=== PATIENT | female | born 1975 | race Caucasian/White ===

== ENCOUNTER 2016-12-30 16:52 | Emergency (ER) | payer OTHER ==
[~2016-12-30] VITALS: Ht 149.9 cm; Wt 77.0 kg
[~2016-12-30 16:52] MED LIST: IBUP-1542 PO
[2016-12-30 16:57] VITALS: Ht 149.9 cm; Wt 77.0 kg
[2016-12-30] MEDS ORDERED: HYDROCODONE/APAP (5/325) TAB PO STA (17:36)
[2016-12-30] MEDS ORDERED: ONDANSETRON (ODT) 4 MG TAB ODT STA (17:36)
--- NOTE | 2016-12-30 18:28 | RADRPT ---
PROCEDURE: Right Upper Quadrant Ultrasound. CLINICAL INDICATION: Abdominal Pain TECHNIQUE: Multiple real-time images were acquired of the patient's right upper quadrant abdomen a nd retroperitoneum utilizing a high resolution transducer. COMPARISON: None FINDINGS: The liver measures 17.3 cm, and demonstrates moderately increased echogenicity and coarsened echotex ture. The main portal vein is patent with proper directional flow. There is no intrahepatic biliary ductal dilatation. The extrahepatic common bile duct measures 5 mm. There is cholelithiasis. There is no gallbladder wall thickening or pericholecystic fluid. Sonogra phic Charles's sign is absent. The visualized pancreas is unremarkable. The right kidney measures 10.9 cm and demonstrates normal echotexture. There is no right renal calcu reema or hydronephrosis. The visualized abdominal aorta and IVC are grossly unremarkable. IMPRESSION: The liver is mildly enlarged and demonstrates moderately increased echogenicity and coarsened echote xture. Findings are nonspecific and can be seen with fatty infiltration and / or early chronic live r disease. No definite morphologic changes of cirrhosis are identified. The main portal vein is pa tent with proper directional flow. Cholelithiasis without evidence of acute cholecystitis. Normal CBD. RPTAT: EE Physician Becky Date Time Electronically viewed and signed by Physician Becky on 12/30/2016 18:27 /
[2016-12-30 18:36] LABS: ADD SCAN DIFF NO
[2016-12-30 18:41] LABS: BASOPHILS % 0.1 % (0.0-2.0); EOSINOPHILS # 0.1 10^3/ul (0.0-0.5); EOSINOPHILS % 0.6 % (0.0-7.0); HEMATOCRIT 32.7 % (37.0-47.0); HEMOGLOBIN 10.5 g/dl (12.0-16.0); LYMPHOCYTES # 0.8 10^3/ul (0.8-2.9); LYMPHOCYTES % 7.1 % (15.0-51.0); MEAN CORPUSCULAR HEMOGLOBIN 27.2 pg (29.0-33.0); MEAN CORPUSCULAR HGB CONC 32.1 g/dl (32.0-37.0); MEAN CORPUSCULAR VOLUME 84.7 fl (82.0-101.0); MEAN PLATELET VOLUME 9.6 fl (7.4-10.4); MONOCYTE # 0.6 10^3/ul (0.3-0.9); MONOCYTES % 5.3 % (0.0-11.0); NEUTROPHIL # 10.2 10^3/ul (1.6-7.5); NEUTROPHILS % 86.6 % (39.0-77.0); PLATELET COUNT 348 10^3/UL (140-415); RED BLOOD COUNT 3.86 10^6/ul (4.20-5.40); RED CELL DISTRIBUTION WIDTH 14.2 % (11.5-14.5); WHITE BLOOD COUNT 11.8 10^3/ul (4.8-10.8)
[2016-12-30 19:02] LABS: ALBUMIN 4.1 g/dl (3.3-4.9); ALBUMIN/GLOBULIN RATIO 1.28; BILIRUBIN,INDIRECT 0.1 mg/dl (0-1.1); BILIRUBIN,TOTAL 0.1 mg/dl (0.2-1.3); CALCIUM 8.9 mg/dl (8.4-10.2); CREATININE 0.67 mg/dl (0.44-1.00); POTASSIUM 4.1 mmol/L (3.5-5.1); TOTAL PROTEIN 7.3 g/dl (6.1-8.1)
[2016-12-30] MEDS ORDERED: ACET325T33 PO (19:21)
[2016-12-30] MEDS ORDERED: ONDA4TAB14 PO (19:21)
[2016-12-30 19:51] LABS: ADD UMIC YES; URINE BILIRUBIN (Dip) NEGATIVE (NEGATIVE); URINE BLOOD (Dip) NEGATIVE (NEGATIVE); URINE COLOR LT. YELLOW (YELLOW); URINE GLUCOSE (Dip) NEGATIVE (NEGATIVE); URINE KETONES (Dip) NEGATIVE (NEGATIVE); URINE LEUKOCYTE ESTERASE (Dip) 3+ (NEGATIVE); URINE NITRITE (Dip) NEGATIVE (NEGATIVE); URINE TOTAL PROTEIN (Dip) NEGATIVE (NEGATIVE); URINE UROBILINOGEN (Dip) 1.0 E.U./dL (0.1-1.0)
--- NOTE | 2016-12-30 19:59 | ERD ---
ER Documentation Chief Complaint Date/Time DATE: 12/30/16 TIME: 19:55 Chief Complaint EPIGASTRIC PAIN SINCE 1500 TODAY HPI This is a 41-year-old female presenting to the emergency department complaining of epigastric pain that radiates towards her back, describing it as pressure coming and going rating it 8 out of 10. Patient states that it has started a couple hours after her last meal at 1 PM. She denies any nausea, vomiting, diarrhea. She states that she took Tums since she thought it might be acid reflux however states that it feels different. Her last menstrual period was last month. ROS All systems reviewed and are negative except as per history of present illness. Medications Home Meds Active Scripts Ondansetron (Ondansetron Odt) 4 Mg Tab.rapdis, 4 MG PO Q6H Y for NAUSEA AND/OR VOMITING, #14 TAB Prov:BOB BERGMAN PA-C 12/30/16 Acetaminophen* (Tylenol*) 325 Mg Tablet, 2 TAB PO Q6 Y for PAIN AND OR ELEVATED TEMP, #30 TAB Prov:BOB BERGMAN PA-C 12/30/16 Ibuprofen* (Motrin*) 600 Mg Tab, 600 MG PO Q6, #30 TAB Prov:ARABELLA WADE PA-C 12/24/15 Allergies Allergies: Coded Allergies: No Known Allergy (Unverified , 12/24/15) PMhx/Soc History of Surgery: Yes (C-sections) Hx Alcohol Use: No Hx Substance Use: No Hx Tobacco Use: No Physical Exam Vitals Vital Signs Date Time Temp Pulse Resp B/P Pulse Ox O2 Delivery O2 Flow Rate FiO2 12/30/16 16:57 98.5 78 18 139/87 100 Physical Exam GENERAL: well-developed/well-nourished, in no apparent distress, non-toxic appearing HENT: NC/AT, moist mucous membranes EYES: Conjunctiva normal NECK: Supple, no lymphadenopathy PULM: CTA bilaterally, no rales, rhonchi, or wheezing heard CV: Normal S1S2, RRR, good capillary refill GI: Soft, non-distended, tender to palpation epigastric region Normal bowel sounds, no masses or organomegaly felt on exam No gross peritonitis, no bruits Negative Rovsing, negative Charles, negative McBurney's point, Negative CVAT BACK: No masses EXT: No clubbing, cyanosis, or edema NEURO: Alert and Orientated SKIN: Intact, normal turgor PSYCH: Normal mood and mentation Result Diagram: 12/30/16181912/30/161819 Results 24 hrs Laboratory Tests Test 12/30/16 18:20 White Blood Count 11.810^3/ul Red Blood Count 3.8610^6/ul Hemoglobin 10.5g/dl Hematocrit 32.7% Mean Corpuscular Volume 84.7fl Mean Corpuscular Hemoglobin 27.2pg Mean Corpuscular Hemoglobin Concent 32.1g/dl Red Cell Distribution Width 14.2% Platelet Count 47732^3/UL Mean Platelet Volume 9.6fl Neutrophils % 86.6% Lymphocytes % 7.1% Monocytes % 5.3% Eosinophils % 0.6% Basophils % 0.1% Nucleated Red Blood Cells % 0.0/100WBC Neutrophils # 10.210^3/ul Lymphocytes # 0.810^3/ul Monocytes # 0.610^3/ul Eosinophils # 0.110^3/ul Basophils # 0.010^3/ul Nucleated Red Blood Cells # 0.010^3/ul Sodium Level 137mmol/L Potassium Level 4.1mmol/L Chloride Level 103mmol/L Carbon Dioxide Level 27mmol/L Anion Gap 11 Blood Urea Nitrogen 16mg/dl Creatinine 0.67mg/dl Glucose Level 122mg/dl Calcium Level 8.9mg/dl Total Bilirubin 0.1mg/dl Direct Bilirubin 0.00mg/dl Indirect Bilirubin 0.1mg/dl Aspartate Amino Transf (AST/SGOT) 135IU/L Alanine Aminotransferase (ALT/SGPT) 76IU/L Alkaline Phosphatase 87IU/L Total Protein 7.3g/dl Albumin 4.1g/dl Globulin 3.20g/dl Albumin/Globulin Ratio 1.28 Lipase 127U/L Current Medications Medications (Trade) Dose Ordered Sig/Kylee Route PRN Reason Start Time Stop Time Status Last Admin Dose Admin Acetaminophen/ Hydrocodone Bitart (Leonard (5/325)) 1 tab ONCE STAT PO 12/30/16 17:36 12/30/16 17:38 DC Ondansetron HCl (Zofran Odt) 4 mg ONCE STAT ODT 12/30/16 17:36 12/30/16 17:38 DC Procedures/MDM 41-year-old female presenting to the emergency room complaining of 8 out of 10 epigastric pain that radiates to her back since 3 PM today likely due to cholelithiasis. I doubt patient has sepsis, choledocholithiasis, cholecystitis or cholangitis, pancreatitis or other acute abdomen conditions due to physical examination and diagnostic testing. Patient appears well and nontoxic appearing with stable vital signs. Lab work was drawn. CBC did not show any evidence of leukocytosis or anemia. CMP did not show any evidence of renal or electrolyte abnormalities. Patient did have elevated mild transaminases, likely due to fatty infiltration of the liver. No evidence of hepatic obstruction, lipase was normal. UA did not show any evidence of hemoglobin or urinary tract infection. Diagnostic testing and instructions were given to patient. Pain control and antiemetic prescriptions were provided for outpatient self-care. Discussed with patient to follow-up with primary care for GI referral. Precautions were given to return to the ER for fever, intractable pain, increased vomiting, and other worsening signs and symptoms. Patient expressed agreement and understanding of this plan. Gallbladder US: The liver is mildly enlarged and demonstrates moderately increased echogenicity and coarsened echotexture. Findings are nonspecific and can be seen with fatty infiltration and / or early chronic liver disease. No definite morphologic changes of cirrhosis are identified. The main portal vein is patent with proper directional flow. Cholelithiasis without evidence of acute cholecystitis. Normal CBD. Departure Diagnosis: Primary Impression: Cholelithiasis Condition: Stable Patient Instructions: Gallstones, Biliary Colic With Gallstone (Confirmed) Referrals: [facility] YOU HAVE RECEIVED A MEDICAL SCREENING EXAM AND THE RESULTS INDICATE THAT YOU DO NOT HAVE A CONDITION THAT REQUIRES URGENT TREATMENT IN THE EMERGENCY DEPARTMENT. FURTHER EVALUATION AND TREATMENT OF YOUR CONDITION CAN WAIT UNTIL YOU ARE SEEN IN YOUR DOCTORS OFFICE WITHIN THE NEXT 1-2 DAYS. IT IS YOUR RESPONSIBILITY TO MAKE AN APPOINTMENT FOR FOLOW-UP CARE. IF YOU HAVE A PRIMARY DOCTOR --you should call your primary doctor and schedule an appointment IF YOU DO NOT HAVE A PRIMARY DOCTOR YOU CAN CALL OUR PHYSICIAN REFERRAL HOTLINE AT IF YOU CAN NOT AFFORD TO SEE A PHYSICIAN YOU CAN CHOSE FROM THE FOLLOWING [facility] [address] [facility]. [facility] [address] [facility]. [address] [facility] [address] [facility] [address] [facility] [address] [facility]. [facility] [address] Additional Instructions: FOLLOW UP WITH YOUR PRIMARY CARE PHYSICIAN TOMORROW.Return to this facility if you are not improving as expected. Return to this facility if you are not improving as expected. Take all medicines as directed. Return to this facility if you are not improving as expected. BOB BERGMAN PA-C December 30, 2016 19:59
[2016-12-30 20:05] LABS: BACTERIA,URINE MODERATE; SQUAMOUS EPITHELIAL CELL,UR MODERATE; URINE RBCS 0-2 /HPF (0)
[2016-12-30 20:08] VITALS: BP 127/72; PULSE 71; RESP 16
== END 2016-12-30 20:10 | disposition home or self-care (01) ==
LOC: FTE 16:52
DX: K80.20 Calculus of gallbladder without cholecystitis without obstruction (principal)
CPT/HCPCS: 76705; 80053; 81001; 83690; 85025; Z7610; 81003

== ENCOUNTER 2018-11-28 13:02 | Emergency (ER) | payer OTHER ==
[~2018-11-28] VITALS: Ht 152.4 cm; Wt 70.5 kg
[~2018-11-28 13:02] MED LIST changes: +ACET325T33 PO; +ONDA4TAB14 PO
[2018-11-28 13:24] VITALS: BP 157/90; PULSE 83; RESP 18; Ht 152.4 cm; Wt 70.5 kg
[2018-11-28] MEDS ORDERED: morphine 4 MG/ML VIAL IV STA (14:30)
[2018-11-28] MEDS ORDERED: ONDANSETRON 4 MG INJ IV STA (14:30)
[2018-11-28] MEDS ORDERED: FAMOTIDINE 20 MG INJ IV STA (14:30)
[2018-11-28] MEDS ORDERED: SOD CHLORIDE 0.9% 1,000 ML IV STA (14:30)
--- NOTE | 2018-11-28 14:35 | ERD ---
ER Documentation Chief Complaint Chief Complaint EPIGASTRIC PAIN X 1 HOUR HPI 43-year-old female with known history of gallstones who presents to the emergency room with epigastric and right upper quadrant abdominal pain that started less than 24 hours ago. The pain is sharp with slight radiation to the back. She denies any chest pressure or exertional symptoms. Similar pain related to gallstones in the past. Patient denies any jaundice, fevers or chills, no nausea or vomiting. ROS All systems reviewed and are negative except as per history of present illness. Medications Home Meds Active Scripts Ibuprofen* (Motrin*) 800 Mg Tab, 800 MG PO Q6H PRN for PAIN AND OR ELEVATED TEMP, #30 TAB Prov:SHIVA NAIDU MD 11/28/18 Reported Medications Folic Acid* (Folic Acid*) 1 Mg Tablet, 1 MG PO DAILY, TAB 11/28/18 Ferrous Sulfate* (Ferrous Sulfate*) 325 Mg Tabec, 325 MG PO DAILY, TAB 11/28/18 Discontinued Scripts Ondansetron (Ondansetron Odt) 4 Mg Tab.rapdis, 4 MG PO Q6H PRN for NAUSEA AND/OR VOMITING, #14 TAB Prov:BOB BERGMAN PA-C 12/30/16 Acetaminophen* (Tylenol*) 325 Mg Tablet, 2 TAB PO Q6 PRN for PAIN AND OR ELEVATED TEMP, #30 TAB Prov:BOB BERGMAN PA-C 12/30/16 Ibuprofen* (Motrin*) 600 Mg Tab, 600 MG PO Q6, #30 TAB Prov:ARABELLA WADE PA-C 12/24/15 Allergies Allergies: Coded Allergies: No Known Allergy (Unverified , 11/28/18) PMhx/Soc History of Surgery: Yes (C-sections) Hx Miscellaneous Medical Probl: Yes (CHOLELITHIASIS) Hx Alcohol Use: No Hx Substance Use: No Hx Tobacco Use: No Smoking Status: Never smoker FmHx Family History: No diabetes Physical Exam Vitals Vital Signs Date Temp Pulse Resp B/P (MAP) Pulse Ox O2 O2 Flow FiO2 Time Delivery Rate 11/28/18 99.1 83 18 157/90 96 13:24 (112) Physical Exam General: Well developed, well nourished, no acute distress Head: Normocephalic, atraumatic. Eyes: Pupils equally reactive, EOM intact ENT: Moist mucous membranes Neck: Supple, no lymphadenopathy Respiratory: Lungs clear bilaterally, no distress Cardiovascular: RRR, no murmurs, rubs, or gallops Abdominal: Soft, tenderness to the epigastrium and right upper quadrant, no tenderness to McBurney's point, no peritonitis : Deferred MSK: No edema, no unilateral swelling, 5/5 strength Neurologic: Alert and oriented, moving all extremities, normal speech, no focal weakness, no cerebellar signs Skin: No rash Psych: Normal mood Result Diagram: 11/28/18 1440 11/28/18 1440 Results 24 hrs Laboratory Tests Test 11/28/18 14:40 11/28/18 14:47 11/28/18 14:48 White Blood Count 10.8 10^3/ul Red Blood Count 3.46 10^6/ul Hemoglobin 10.3 g/dl Hematocrit 31.1 % Mean Corpuscular Volume 89.9 fl Mean Corpuscular Hemoglobin 29.8 pg Mean Corpuscular 33.1 g/dl Hemoglobin Concent Red Cell Distribution Width 12.0 % Platelet Count 311 10^3/UL Mean Platelet Volume 9.7 fl Immature Granulocytes % 0.500 % Neutrophils % 84.0 % Lymphocytes % 7.8 % Monocytes % 6.3 % Eosinophils % 1.1 % Basophils % 0.3 % Nucleated Red Blood Cells % 0.0 /100WBC Immature Granulocytes # 0.050 10^3/ul Neutrophils # 9.1 10^3/ul Lymphocytes # 0.8 10^3/ul Monocytes # 0.7 10^3/ul Eosinophils # 0.1 10^3/ul Basophils # 0.0 10^3/ul Nucleated Red Blood Cells # 0.0 10^3/ul Sodium Level 142 mmol/L Potassium Level 3.7 mmol/L Chloride Level 107 mmol/L Carbon Dioxide Level 26 mmol/L Anion Gap 9 Blood Urea Nitrogen 16 mg/dl Creatinine 0.58 mg/dl Est Glomerular Filtrat Rate mL/min > 60 mL/min Glucose Level 108 mg/dl Calcium Level 9.2 mg/dl Total Bilirubin 0.5 mg/dl Direct Bilirubin 0.00 mg/dl Indirect Bilirubin 0.5 mg/dl Aspartate Amino Transf (AST/SGOT) 172 IU/L Alanine 77 IU/L Aminotransferase (ALT/SGPT) Alkaline Phosphatase 132 IU/L Total Protein 7.3 g/dl Albumin 4.2 g/dl Globulin 3.10 g/dl Albumin/Globulin Ratio 1.35 Lipase 96 U/L Bedside Urine pH (LAB) 6.5 Bedside Urine Protein (LAB) Negative Bedside Urine Glucose (UA) Negative Bedside Urine Ketones (LAB) Negative Bedside Urine Blood 2+ Bedside Urine Nitrite (LAB) Negative Bedside Urine Leukocyte Esterase Negative (L POC Beta HCG, Qualitative NEGATIVE Current Medications Medications Dose Sig/Kylee Start Time Status Last (Trade) Ordered Route PRN Stop Time Admin Dose Reason Admin Sodium 1,000 ml @ Q1H STAT 11/28/18 DC 11/28/18 Chloride 1,000 mls/hr IV 14:30 14:42 11/28/18 15:29 Morphine 4 mg ONCE STAT 11/28/18 DC 11/28/18 Sulfate IV 14:30 14:42 (morphine) 11/28/18 14:31 Ondansetron 4 mg ONCE STAT 11/28/18 DC 11/28/18 HCl (Zofran IV 14:30 14:42 Inj) 11/28/18 14:31 Famotidine 20 mg ONCE STAT 11/28/18 DC 11/28/18 (Pepcid Iv) IV 14:30 14:42 11/28/18 14:31 Procedures/MDM EKG, MONITORS, & DIAGNOSTIC IMAGING: Ultrasound gallbladder: IMPRESSION: Cholelithiasis without evidence of abnormal gallbladder wall thickening to suggest cholecystitis. Mild dilatation of the common bile duct concerning for non-visualized choledocholithiasis. MRCP can be obtained for further evaluation. RPTAT: AADD LAB INTERPRETATION: I reviewed the laboratory testing and it shows very subtle transaminitis MEDICAL DECISION MAKING: The patient's presentation is consistent with either GI process such as peptic ulcer disease, gastritis or dyspepsia versus gallbladder process such as biliary colic or acute cholecystitis. Consider possibly choledocholithiasis. No signs or symptoms concerning for cardiac etiology. Patient would benefit from laboratory testing, symptom control and ultrasound of the gallbladder. ER COURSE: * The patient's pain is well controlled with pain medication here. The patient has very subtle transaminitis but otherwise nonobstructive pattern. Ultrasoun d shows no evidence of cholecystitis. There is question for possible common bile duct abnormality but the patient is not exhibiting persistent symptoms and has a nonobstructive pattern on LFTs. No indication for emergent MRCP. Patient was advised of outpatient follow-up with general surgery, return precautions and includes jaundice, uncontrolled pain or fever. Patient feels comfortable with the plan. CONSULTATION: [None] DISPOSITION PLAN: The patient does not have an identifiable emergent medical condition that warrants inpatient hospitalization at this time. The patient is deemed safe for discharge with outpatient follow-up. We discussed follow up with the patient's primary care doctor within 24 to 48 hours as needed. We also discussed return to the emergency room for worsening s ymptoms or worsening condition. Outpatient referral: General surgery Discharge Medications: Motrin Departure Diagnosis: Primary Impression: Abdominal pain Abdominal location: right upper quadrant Qualified Codes: R10.11 - Right upper quadrant pain Additional Impression: Biliary colic Condition: Stable SHIVA NAIDU MD Nov 28, 2018 14:35
[2018-11-28] MEDS ORDERED: FER325 PO (15:23)
[2018-11-28] MEDS ORDERED: FOLI-49 PO (15:23)
[2018-11-28] MEDS ORDERED: IBUP800T48 PO (15:52)
== END 2018-11-28 16:18 | disposition home or self-care (01) ==
LOC: E/R 13:02
DX: K80.50 Calculus of bile duct without cholangitis or cholecystitis without obstruction (principal)
CPT/HCPCS: 36415; 76705; 80053; 81025; 83690; 85025; 96374; 96375; J2270; J2405; J7030; Z7502; Z7610; 81003